=== PATIENT | female | born 1970 | race Asian ===

== ENCOUNTER 2017-02-11 12:03 | Day surgery (SDC) | payer OTHER ==
[2017-02-10 16:43] VITALS: Ht 162.6 cm; Wt 67.6 kg
[~2017-02-11] VITALS: Ht 162.6 cm; Wt 67.6 kg
[2017-02-11] VITALS (16 sets, daily range): BP systolic 102–123; BP diastolic 52–66; PULSE 77–91; RESP 16–20
[~2017-02-11 12:03] MED LIST: CEFAZOLIN 2 GM/50 ML (PMX) 50 ML IVPB SCH; LACTATED RINGER'S 1,000 ML IV SCH
[2017-02-11 13:06] LABS: ADD SCAN DIFF NO
[2017-02-11 13:12] LABS: BASOPHILS % 0.3 % (0.0-2.0); EOSINOPHILS % 0.6 % (0.0-7.0); HEMOGLOBIN 12.3 g/dl (12.0-16.0); LYMPHOCYTES # 1.3 10^3/ul (0.8-2.9); LYMPHOCYTES % 20.8 % (15.0-51.0); MEAN CORPUSCULAR HEMOGLOBIN 31.2 pg (29.0-33.0); MEAN CORPUSCULAR HGB CONC 33.2 g/dl (32.0-37.0); MEAN CORPUSCULAR VOLUME 93.9 fl (82.0-101.0); MEAN PLATELET VOLUME 11.5 fl (7.4-10.4); MONOCYTE # 0.4 10^3/ul (0.3-0.9); MONOCYTES % 6.4 % (0.0-11.0); NEUTROPHIL # 4.4 10^3/ul (1.6-7.5); NEUTROPHILS % 71.6 % (39.0-77.0); PLATELET COUNT 199 10^3/UL (140-415); RED BLOOD COUNT 3.94 10^6/ul (4.20-5.40); RED CELL DISTRIBUTION WIDTH 13.2 % (11.5-14.5); WHITE BLOOD COUNT 6.2 10^3/ul (4.8-10.8)
[2017-02-11 13:19] LABS: ALBUMIN 4.1 g/dl (3.3-4.9)
[2017-02-11 13:20] LABS: POTASSIUM 3.7 mmol/L (3.5-5.1)
[2017-02-11 13:21] LABS: INR 0.99; PROTIME 13.1 Sec (12.2-14.2)
[2017-02-11 13:22] LABS: ALBUMIN/GLOBULIN RATIO 1.32; BILIRUBIN,INDIRECT 0.8 mg/dl (0-1.1); BILIRUBIN,TOTAL 0.8 mg/dl (0.2-1.3); TOTAL PROTEIN 7.2 g/dl (6.1-8.1)
[2017-02-11 13:30] LABS: PARTIAL THROMBOPLASTIN TIME 35.2 Sec (25.0-35.0)
[2017-02-11 13:34] LABS: CALCIUM 9.2 mg/dl (8.4-10.2); CREATININE 0.64 mg/dl (0.44-1.00)
[2017-02-11] MEDS ORDERED: METOCLOPRAMIDE 10 MG INJ ONE (14:12)
[2017-02-11] MEDS ORDERED: FENTAnyl 50 MCG/ML VIAL ONE (14:12)
[2017-02-11] MEDS ORDERED: PROPOFOL 20 ML ONE ×2 (14:12→14:32)
[2017-02-11] MEDS ORDERED: MIDAZOLAM 1 MG/ML 2 ML INJ ONE (14:12)
[2017-02-11] MEDS ORDERED: BUPIVACAINE 0.25%/EPI (SDV) 30 ML INJ ONE (14:25)
[2017-02-11] MEDS ORDERED: CEFAZOLIN 1 GM INJ ONE (14:28)
[2017-02-11] MEDS ORDERED: KETOROLAC 30 MG INJ ONE (14:32)
[2017-02-11] MEDS ORDERED: EPHEDrine SULFATE 50 MG/5 ML SYG ONE (14:40)
[2017-02-11] MEDS ORDERED: DIPHENHYDRAMINE 50 MG INJ IV PRN (15:00)
[2017-02-11] MEDS ORDERED: HYDROmorphONE (0.2 MG/ML) 10ML SYG IV PRN ×3 (15:00)
[2017-02-11] MEDS ORDERED: MEPERIDINE 25 MG INJ IV PRN (15:00)
[2017-02-11] MEDS ORDERED: ONDANSETRON 4 MG INJ IV PRN ×2 (15:00→19:00)
[2017-02-11] MEDS ORDERED: OXYCODONE/ACETAMINOPHEN (5/325) TAB PO PRN ×2 (15:00)
[2017-02-11] MEDS ORDERED: METOCLOPRAMIDE 10 MG INJ IV PRN (15:00)
[2017-02-11] MEDS ORDERED: LACTATED RINGER'S 1,000 ML IV SCH ×2 (15:14)
--- NOTE | 2017-02-11 16:09 | OPR ---
DATE OF OPERATION: 02/11/2017 SURGEON: Chapincito Joe MD ERP ANALYST: None. ANESTHESIA: General and local. ANESTHESIOLOGIST: SHANNAN GONZALES MD. PREOPERATIVE DIAGNOSIS: Subcutaneous masses, right upper inner thigh, pending pathology (grossly ap pears like a dermoid cyst). POSTOPERATIVE DIAGNOSES: Subcutaneous masses, right upper inner thigh, pending pathology (grossly a ppears like a dermoid cyst). PROCEDURE PERFORMED: Excision of the mass in complete form and closure of the wound in 2 layers. INDICATION: The patient is a 46-year-old female who presented to my office complaining of presence of a mass under the subcutaneous tissue right upper thigh. She stated that she had a seroma to the area of the thighs and following that she has been feeling this mass gradually increasing in size. It is painful and bothersome. She wanted that to be removed. DESCRIPTION OF PROCEDURE: Patient brought to the operating room, placed on operating table in supin e position. Anesthesia was induced by the anesthesiologist. Time-out was called. The patient was identified, site of operation was identified. Antibiotic was given. Prep and drape in sterile [facility] ion was performed. All through the operation 0.25% Marcaine with epinephrine was used for local ane sthesia and analgesia. After injecting local anesthesia, a skin incision was made transversely and the middle of the mass was located, carried down through subcutaneous tissue. The mass was pushing actually through the skin so that I could separate it gently from the base and then go around it and eventually completely excise it using sharp dissection and also electrocautery. It appeared like a dermoid cyst. It was sent for pathologic evaluation. Wound was irrigated thoroughly and then it w as closed in 2 layers, deeper layer with 4-0 Monocryl and superficial layer of subcuticular closure with 4-0 Vicryl. Again, at the end, Dermabond was applied over the wound. The patient tolerated pr ocedure well. Sponge and instrument count reported to be correct x2. Patient extubated, transferr ed to recovery room in stable condition. Specimen was sent for pathologic evaluation. ESTIMATED BLOOD LOSS: Nil. COMPLICATIONS: None. Dictated By: CHAPINCITO JOE MD PS/NTS Conf#: [id number] DID#: [id number]
[2017-02-11] MEDS ORDERED: HYDROCODONE/APAP (5/325) TAB PO PRN ×2 (19:00)
[2017-02-11] MEDS ORDERED: morphine 2 MG INJ IV PRN (19:00)
== END 2017-02-11 16:45 | disposition home or self-care (01) ==
LOC: SDS 12:03
DX: L72.0 Epidermal cyst (principal)
CPT/HCPCS: 11404; 12031; 80053; 84703; 85025; 85610; 85730; 88307; J0690; J1885; J2250; J2765; J3010